=== PATIENT | female | born 1970 | race Caucasian/White ===

== ENCOUNTER 2024-04-20 09:32 | Inpatient (IN) ==
--- NOTE | 2024-03-30 12:19 | PAT Medication Instructions ---
Medication Instructions Date of Service March 30, 2024 Home Medications Medication Instructions Recorded baclofen 10 mg tablet 10 mg PO BID PRN pain/spasm #60 11/16/22 tabs levothyroxine 150 mcg tablet 150 mcg PO DAILY #90 tabs 11/18/23 valsartan 320 mg tablet 160 mg PO QPM hydroxychloroquine 200 mg tablet 400 mg PO QPM aspirin 81 mg capsule 81 mg PO QPM aspirin-caffeine 1,000 mg-65 mg oral powder packet (BC Arthritis) 1 ea PO DAILY PRN baclofen 10 mg tablet 10 mg PO BID PRN ascorbic acid (vitamin C) 1,000 mg capsule 1,000 mg PO QPM biotin 5,000 mcg PO QPM calcium carbonate (Calcium 600) 600 mg PO QPM cholecalciferol (vitamin D3) 125 mcg (5,000 unit) capsule 125 mcg PO DAILY echinacea 400 mg capsule 400 mg PO DAILY nabumetone 500 mg tablet 500 mg PO BID PRN zinc gluconate 100 mg tablet 100 mg PO QPM d-mannose 500 mg capsule 500 mg PO QPM magnesium aspartate-potassium aspartate 250 mg-250 mg capsule 1 cap PO QPM selenium 200 mcg tablet 200 mcg PO QPM venlafaxine 75 mg capsule,extended release 24 hr (Effexor XR) 75 mg PO QAM levothyroxine 150 mcg tablet 150 mcg PO DAILY cranberry 500 mg capsule 1,500 mg PO BID metformin 500 mg tablet 1,000 mg PO BID gabapentin 100 mg tablet 100 mg PO TID Continue as directed levothyroxine 150 mcg tablet 150 mcg PO DAILY ASK your prescriber and surgeon hydroxychloroquine 200 mg tablet 400 mg PO QPM aspirin 81 mg capsule 81 mg PO QPM aspirin-caffeine 1,000 mg-65 mg oral powder packet (BC Arthritis) 1 ea PO DAILY PRN nabumetone 500 mg tablet 500 mg PO BID PRN STOP taking 2 weeks before surgery (or as soon as possible if surgery is within 2 weeks) biotin 5,000 mcg PO QPM echinacea 400 mg capsule 400 mg PO DAILY selenium 200 mcg tablet 200 mcg PO QPM DO NOT take the morning of surgery cholecalciferol (vitamin D3) 125 mcg (5,000 unit) capsule 125 mcg PO DAILY zinc gluconate 100 mg tablet 100 mg PO QPM d-mannose 500 mg capsule 500 mg PO QPM cranberry 500 mg capsule 1,500 mg PO BID metformin 500 mg tablet 1,000 mg PO BID Take morning of surgery With a small sip of water, OTHERWISE NOTHING TO EAT OR DRINK AFTER MIDNIGHT: baclofen 10 mg tablet 10 mg PO BID PRN(if needed) venlafaxine 75 mg capsule,extended release 24 hr (Effexor XR) 75 mg PO QAM gabapentin 100 mg tablet 100 mg PO TID Take evening before surgery valsartan 320 mg tablet 160 mg PO QPM baclofen 10 mg tablet 10 mg PO BID PRN(if needed) ascorbic acid (vitamin C) 1,000 mg capsule 1,000 mg PO QPM calcium carbonate (Calcium 600) 600 mg PO QPM magnesium aspartate-potassium aspartate 250 mg-250 mg capsule 1 cap PO QPM cranberry 500 mg capsule 1,500 mg PO BID metformin 500 mg tablet 1,000 mg PO BID gabapentin 100 mg tablet 100 mg PO TID Other Notes If you have any questions please call us at [phone] or [phone] or [phone] or [phone]
--- NOTE | 2024-04-06 14:15 | Anesthesiology Consultation ---
Date of Service April 06, 2024 Assessment & Plan (1) Encounter for pre-operative examination: - Infectious disease screening: Per assessment on 04/06/24: No known recent infectious disease contacts or current infectious disease symptoms. - Neurology visit (11/2023): "At this point in time, I believe her dysequilibrium is multifactorial in light of her chronic vertigo and polyneuropathy; however, it seems most of her dizziness/dysequilibrium is due to her peripheral vertigo; she notes she would like to seek a second ENT opinion and is going to contact her PCP for this referral. In light of her cognitive complaints, a referral has been placed for a neurocognitive evaluation. She may continue with her current medication regimen in the meantime. She is to continue to follow with all current providers and their recommendations as advised. We will follow up with her once her neurocognitive testing has been completed, and sooner if needed." - LUE limb restriction - Possible difficult intubation: small oral opening, h/o mandibular surgery, macroglossia. Patient states prolonged "tongue pain" after remote surgery which she thinks might have been r/t the intubation- limited details, patient states she was not told by any provider that there was difficulties with intubation. - Hx PONV: Per patient, success with previous scope patch use. At anesthesiologist discretion DOS for use with upcoming surgery. - Patient acceptable risk for surgery pending surgeon-ordered PCP preop evaluation (Sandy Leigh PAC, appt 04/10). Chart Review Chart Review: Patient seen in Pre Admission Testing Teaching & Discussion Pre-Anesthesia Teaching/Discussion Notes: Instructed NPO after midnight before surgery,except medications with 15 cc of water. Medication instructions provided according to the PAT guidelines. History Surgery Operation Date: 04/20/24 07:45 Proposed Procedures p L4-S1 Decompression and Fusion with Spinal Cord Monitoring - Rashaun Willoughby DO Height/Weight Height: 5 ft 5 in Weight: 153.5 kg Allergies Allergy/AdvReac Type Severity Reaction Status Date / Time No Known Drug Allergies Allergy Verified 03/30/24 11:09 Medications Home Medications Medication Instructions Recorded Confirmed Last Taken valsartan 320 mg tablet 160 mg PO QPM 07/30/22 03/30/24 Unknown hydroxychloroquine 200 mg tablet 400 mg PO QPM 08/31/22 03/30/24 Unknown aspirin 81 mg capsule 81 mg PO QPM 11/16/22 03/30/24 Unknown aspirin-caffeine 1,000 mg-65 mg 1 ea PO DAILY PRN Pain 11/16/22 03/30/24 Unknown oral powder packet (BC Arthritis) baclofen 10 mg tablet 10 mg PO BID PRN pain/spasm #60 11/16/22 03/30/24 Unknown tabs ascorbic acid (vitamin C) 1,000 mg 1,000 mg PO QPM 02/22/23 03/30/24 Unknown capsule biotin 5,000 mcg PO QPM 02/22/23 03/30/24 Unknown calcium carbonate (Calcium 600) 600 mg PO QPM 02/22/23 03/30/24 Unknown cholecalciferol (vitamin D3) 125 125 mcg PO DAILY 02/22/23 03/30/24 Unknown mcg (5,000 unit) capsule echinacea 400 mg capsule 400 mg PO DAILY 02/22/23 03/30/24 Unknown nabumetone 500 mg tablet 500 mg PO BID PRN Pain 02/22/23 03/30/24 Unknown zinc gluconate 100 mg tablet 100 mg PO QPM 02/22/23 03/30/24 Unknown d-mannose 500 mg capsule 500 mg PO QPM 05/02/23 03/30/24 Unknown magnesium aspartate-potassium 1 cap PO QPM 05/02/23 03/30/24 Unknown aspartate 250 mg-250 mg capsule selenium 200 mcg tablet 200 mcg PO QPM 05/02/23 03/30/24 Unknown venlafaxine 75 mg capsule,extended 75 mg PO QAM 10/25/23 03/30/24 Unknown release 24 hr (Effexor XR) levothyroxine 150 mcg tablet 150 mcg PO DAILY #90 tabs 11/18/23 03/30/24 Unknown cranberry 500 mg capsule 1,500 mg PO BID 12/10/23 03/30/24 Unknown metformin 500 mg tablet 1,000 mg PO BID 12/10/23 03/30/24 Unknown gabapentin 100 mg tablet 100 mg PO TID 03/30/24 03/30/24 Unknown Past Medical History Medical History TYRONE positive ? Lupus Reason for hydroxychloroquine Follows with [facility] Anxiety Aortic stenosis Echo 11/2023: Mild aortic stenosis Cervicalgia Depression Dysequilibrium Follows with [facility] [place] to be multifactorial in light of chronic vertigo/polyneuropathy, possibly peripheral vertigo component Fatty liver H/O Sjogren's disease Hepatomegaly History of COVID-19 2019- hospitalized 2020- mild symptoms, resolved History of hepatomegaly Per records History of iron deficiency History of left breast cancer Hx radiation LUE limb restriction History of Lyme disease HTN (hypertension) Hx of carpal tunnel syndrome Hx of splenomegaly Hypothyroidism Limb alert care status LUE Lumbar disc herniation Lumbar radiculopathy Memory loss Morbid obesity Reason for Metformin Patient denies personal hx of diabetes or prediabetes Osteoarthritis Polyarthralgia Polyneuropathy Diffuse LE polyneuropathy per [facility] neuro records Sleep apnea CPAP (compliant) Exercise / Class Metabolic Activity III < 4 Walking/Shop/Light housework Past Family History Family History Other No family history of adverse response to anesthesia Past Surgical History Surgical History H/O tubal ligation History of breast surgery Breast "cancerous tissue" removed LUE restriction History of colonoscopy History of ear surgery History of esophagogastroduodenoscopy (EGD) History of surgical procedure on mouth Orthodontic surgery Jaw "broken and wired" for orthodontic surgery History of tooth extraction History of umbilical hernia repair History of wisdom tooth extraction Hx of LASIK Nausea and vomiting after administration of anesthetic agent "Severe" Previous scope patch use S/P breast biopsy, left S/P carpal tunnel release Left S/P cholecystectomy S/P hysterectomy SANDY BSO S/P medial meniscus repair of left knee S/P tonsillectomy Past Anesthesia History No Family Hx of Anesthesia Complications and Other (Patient states prolonged "tongue pain" after remote surgery which she thinks might have been r/t the intubation- limited details, patient states she was not told by any provider that there was difficulties with intubation.) History of PONV History of PONV and Hx of Motion Sickness Social History Smoking Status: Never smoker Do You Dip or Chew Tobacco: No Hx Alcohol Use: No Hx Substance Use: No substance use type: does not use Review of Systems Patient denies chest pain, shortness of breath, fever, chills, cough, wheezing, palpitations. Physical Exam Vital Signs BP 107/68 P 79 TEMP 98.3 SP02 95%RA RESP 16 Physical Full cervical extension range of motion. Full TMJ range of motion. TMD > 3.5 finger breaths Mallampati Score 3, macroglossia Dentition: missing molar Lungs: clear throughout to auscultation Cardiac: regular rate and rhythm, faint systolic murmur, distant heart sounds Spine: normal Carotid arteries: negative bruit Extremities: trace non-pitting LE edema Lab Results Anesthesia Preop Results Results Anesthesia Widget: WBC 8.72 K/ul (4.8-10.8) 04/06/24 Hgb 13.1 g/dl (12.0-16.0) 04/06/24 Hct 38.3 % (37.0-47.0) 04/06/24 Plt 240 K/uL (130-400) 04/06/24 Na 139 mmol/L (136-145) 04/06/24 K 4.3 mmol/L (3.5-5.1) 04/06/24 Cl 104 mmol/L (98-107) 04/06/24 CO2 26 mmol/L (21-32) 04/06/24 BUN 16 mg/dl (6-23) 04/06/24 Creat 0.69 mg/dl (0.6-1.2) 04/06/24 Glucose Level 89 mg/dl (70-99(Fasting)) 04/06/24 PT 11.2 Seconds (9.0-12.0) 04/06/24 PTT 26 Seconds (21-31) 04/06/24 INR 1.0 (0.9-1.1) 04/06/24 HA1c 5.1 % (4.5-5.6) 04/06/24 Urine Color Yellow 04/06/24 Urine Appearance Cloudy (Clear) A 04/06/24 Urine pH 5.5 (4.5-7.5) 04/06/24 Urine Specific [place] 1.030 (1.000-1.030) 04/06/24 Urine Protein 1+ (Negative) H 04/06/24 Urine Glucose (UA) Negative (Negative) 04/06/24 Urine Ketones Trace (Negative) H 04/06/24 Urine Blood 2+ (Negative) H 04/06/24 Urine Nitrite Negative (Negative) 04/06/24 Urine Bilirubin Negative (Negative) 04/06/24 Urine Urobilinogen Negative (Negative) 04/06/24 Urine Leukocyte Esterase 2+ (Negative) H 04/06/24 Urine WBC (Auto) >50 /hpf (0-5) H 04/06/24 Urine RBC (Auto) >20 /hpf (0-2) H 04/06/24 Urine Hyaline Casts (Auto) 0-2 /lpf (0-2) 04/06/24 Urine Epithelial Cells (Auto) 0-2 /hpf (0-2) 04/06/24 Urine Bacteria (Auto) None Seen (None Seen) 04/06/24 Blood Type O Positive 04/06/24 Antibody Screen NEGATIVE 04/06/24 Testing Echocardiogram Date: 11/28/23 EF 60 to 65%. No regional wall motion abnormality. Moderate concentric LVH. Mild aortic stenosis (KARL 1.5-1.6 cm, MG 9.5 mmHg). Other Testing Carotid doppler Date: 11/28/23 FINDINGS: RIGHT CAROTID: The peak systolic velocity measurements in the right ICA is 78 cm/sec. The end diastolic velocity measured 21 cm/sec. The ICA to CCA ratio measured 1.0 which correlates with a stenosis of 0-50%. Minimal atherosclerosis of the carotid bulb. LEFT CAROTID: The peak systolic velocity measurements in the left ICA is 89 cm/sec. The end diastolic velocity measured 35 cm/sec. The ICA to CCA ratio measured 1.1 which correlates with a stenosis of 0-50%. Minimal atherosclerosis of the carotid bulb. There is normal antegrade vertebral flow bilaterally. Impression: No hemodynamically significant stenosis. Normal antegrade vertebral flow bilaterally.
[2024-04-20] MEDS: LR 15ML/HR IV SCH (10:36)
[2024-04-20] MEDS: CeleBREX 200 MG CAP PO SCH (10:36)
[2024-04-20] MEDS: ACETAMINOPHEN 500 MG TAB PO SCH (10:36)
[2024-04-20] MEDS: GABAPENTIN 900 MG DOSE PO SCH (10:49)
[2024-04-20] MEDS: LR 60ML/HR IV SCH (10:50)
[2024-04-20] MEDS ORDERED: MIDAZOLAM HCL 1 MG/ML 2ML VIAL ONE (10:59)
[2024-04-20] MEDS ORDERED: LIDOCAINE 2% 2 ML VIAL/AMP(20MG/ML) INFIL ONE (10:59)
[2024-04-20] MEDS ORDERED: DEXAMETHASONE SOD INJ 4 MG/ML VIAL ONE (10:59)
[2024-04-20] MEDS ORDERED: PROPOFOL IV EMULSION 10 MG/ML 20 ML VIAL IV ONE (10:59)
[2024-04-20] MEDS ORDERED: ONDANSETRON INJ 2 MG/ML 2 ML VIAL ONE ×2 (10:59→12:49)
[2024-04-20] MEDS ORDERED: ROCURONIUM BROMIDE 10 MG/ML 5 ML VIAL IV ONE (10:59)
[2024-04-20] MEDS ORDERED: fentaNYL citrate PF 100 MCG/2 ML VIAL ONE ×2 (10:59→14:39)
[2024-04-20] MEDS ORDERED: SUGAMMADEX SODIUM 200 MG/2 ML VIAL IV ONE (11:00)
[2024-04-20] MEDS ORDERED: KETAMINE HCL 10MG/ML SYR ONE (11:00)
--- NOTE | 2024-04-20 11:25 | History & Physical Bridge Note ---
Date of Service April 20, 2024 History & Physical Bridge Note I have examined the patient, reviewed the History & Physical and in the interval since the performance of the History & Physical I have noted the following changes of clinical significance: no changes noted
--- NOTE | 2024-04-20 11:26 | History & Physical Report ---
Date of Service April 20, 2024 Assessment & Plan (1) Neurogenic claudication due to lumbar spinal stenosis: Plan: L4-S1 decompression and fusion History of Present Illness Chief Complaint: Back and bilateral leg pain Primary Care Provider: MECHELLE Lerner This is a 54-year-old female presents with chronic persistent back and leg pain after failing since course of nonoperative care is here for surgical intervention. Allergies Allergy/AdvReac Type Severity Reaction Status Date / Time No Known Drug Allergies Allergy Verified 04/20/24 10:11 Home Medications Medication Instructions Recorded Confirmed Type valsartan 320 mg tablet 160 mg PO QPM 07/30/22 04/20/24 History hydroxychloroquine 200 mg tablet 400 mg PO QPM 08/31/22 04/20/24 History aspirin 81 mg capsule 81 mg PO QPM 11/16/22 04/20/24 History aspirin-caffeine 1,000 mg-65 mg 1 ea PO DAILY PRN Pain 11/16/22 04/20/24 History oral powder packet (BC Arthritis) baclofen 10 mg tablet 10 mg PO BID PRN pain/spasm #60 11/16/22 04/20/24 Rx tabs ascorbic acid (vitamin C) 1,000 mg 1,000 mg PO QPM 02/22/23 04/20/24 History capsule biotin 5,000 mcg PO QPM 02/22/23 04/20/24 History calcium carbonate (Calcium 600) 600 mg PO QPM 02/22/23 04/20/24 History cholecalciferol (vitamin D3) 125 125 mcg PO DAILY 02/22/23 04/20/24 History mcg (5,000 unit) capsule echinacea 400 mg capsule 400 mg PO DAILY 02/22/23 04/20/24 History nabumetone 500 mg tablet 500 mg PO BID PRN Pain 02/22/23 04/20/24 History zinc gluconate 100 mg tablet 100 mg PO QPM 02/22/23 04/20/24 History d-mannose 500 mg capsule 500 mg PO QPM 05/02/23 04/20/24 History magnesium aspartate-potassium 1 cap PO QPM 05/02/23 04/20/24 History aspartate 250 mg-250 mg capsule selenium 200 mcg tablet 200 mcg PO QPM 05/02/23 04/20/24 History venlafaxine 75 mg capsule,extended 75 mg PO QAM 10/25/23 04/20/24 History release 24 hr (Effexor XR) levothyroxine 150 mcg tablet 150 mcg PO DAILY #90 tabs 11/18/23 04/20/24 Rx cranberry 500 mg capsule 1,500 mg PO BID 12/10/23 04/20/24 History metformin 500 mg tablet 1,000 mg PO BID 12/10/23 04/20/24 History gabapentin 100 mg tablet 100 mg PO TID 03/30/24 04/20/24 History nitrofurantoin 100 mg PO Q12H 5 days #10 caps 04/09/24 04/20/24 Rx monohydrate/macrocrystals 100 mg capsule (Macrobid) Past Med/Surg History Problem List (Updated 04/20/24 @ 11:26 by Rashaun Willoughby DO) Neurogenic claudication due to lumbar spinal stenosis Dysuria Hematuria Encounter for pre-operative examination Vitamin D deficiency Medical History Aortic stenosis Dysequilibrium Hx of carpal tunnel syndrome History of Lyme disease Memory loss Morbid obesity Hepatomegaly History of iron deficiency History of hepatomegaly Hx of splenomegaly Lumbar radiculopathy Sleep apnea Osteoarthritis Lumbar disc herniation Cervicalgia Polyarthralgia Polyneuropathy Depression Anxiety Hypothyroidism HTN (hypertension) H/O Sjogren's disease TYRONE positive Fatty liver Limb alert care status History of left breast cancer History of COVID-19 Surgical History Nausea and vomiting after administration of anesthetic agent History of colonoscopy History of esophagogastroduodenoscopy (EGD) History of breast surgery History of tooth extraction History of wisdom tooth extraction History of ear surgery Hx of LASIK S/P hysterectomy S/P breast biopsy, left History of umbilical hernia repair S/P medial meniscus repair of left knee S/P carpal tunnel release S/P cholecystectomy S/P tonsillectomy H/O tubal ligation History of surgical procedure on mouth Family History Other No family history of adverse response to anesthesia Social History Smoking Status: Never smoker Second Hand Exposure: No; Do You Dip or Chew Tobacco: No; Tobacco Cessation Education Requested by Patient: No Hx Alcohol Use: No Hx Substance Use: No Preferred Language: Danish Communication Ability: Effective Computer Game Designer Required: No Beliefs That Will Affect Care: None Current Living Situation: Spouse Other Information That Helps Us Care for You: No Feels Safe at Home: Yes Safety Concerns: Feels Safe At This Time Assistive Devices: Contacts, CPAP and Glasses Physical Exam Physical Exam: Patient is alert and oriented Heart regular in rhythm lungs clear Results & Data Results & Data Vital Signs (Past 12 Hours) Vital Signs Temp Pulse Resp BP Pulse Ox O2 Del Method 04/20/24 10:05 37.1 C 80 22 155/89 H 96 Room Air
[2024-04-20] MEDS: ceFAZolin 3000MG 3,000 MG/72.5 ML BAG IV SCH (11:52)
[2024-04-20] MEDS ORDERED: fentaNYL citrate PF 100 MCG/2 ML VIAL IV PRN (11:56)
[2024-04-20] MEDS ORDERED: PROMETHAZINE HCL 6.25 MG in SODIUM CHLORIDE 0.9% 50 ML IV PRN (11:56)
[2024-04-20] MEDS ORDERED: HYDROmorphone INJ 2 MG/ML SYR/VIAL IV PRN (11:56)
[2024-04-20] MEDS ORDERED: ATROPINE SULFATE 0.1 MG/ML 10ML SYR IV PRN (11:56)
[2024-04-20] MEDS ORDERED: ONDANSETRON INJ 2 MG/ML 2 ML VIAL IV PRN ×2 (11:56→17:15)
[2024-04-20] MEDS ORDERED: ePHEDrine sulfate 50 MG/ML AMP IV PRN (11:56)
[2024-04-20] MEDS: BUPIVACAINE/EPINEPHRINE 0.25% 1:200,000 30 ML VIAL ONE (12:43)
[2024-04-20] MEDS: ceFAZolin 330 MG/ML 1 GM VIAL ONE (12:43)
[2024-04-20] MEDS: FLOSEAL HEMOSTATIC MATRIX 10ML TOP ONE (14:08)
--- NOTE | 2024-04-20 14:44 | Operative Report ---
Post Operative Report Pre & Post Diagnosis Operation Date: 04/20/24 11:25 Pre-Op Diagnosis: #1 lumbar spinal stenosis with neurogenic claudication #2 grade 1 spondylolisthesis L4-L5 #3 morbid obesity Post-Op Diagnosis: Same I identified the patient and participated in the time-out.: Yes Procedure Operation Date: 04/20/24 11:25 Actual Procedures #1 lumbar decompression bilateral medial facetectomies and foraminotomies L3-L4, L4-5 and L5-S1. #2 posterior spinal fusion L4-S1. #3 placed posterior instrumentation L4-S1. #4 interbody fusion L4-L5 L5-S1. #5 placement of Spira 14 x 26 mm x 2 at L4-5 and 13 x 26 mm x 2 at L5-S1. #6 placement locally harvested morselized autograft in the posterior gutters. #7 placement infuse collagen sponge, with Koros bone graft in the posterior gutters and Morpheus bone graft interbody space. Surgeon Rashaun Willoughby, DO Mis Specialist Karli Causey Estimated Blood Loss 750 Findings See Below The patient is 5 foot 5 weighing over 153 kg with a BMI in excess of 56. This combined with an EBL of greater than 750 cc created significant technical difficulty. She was technically difficult with positioning exposure and the procedure itself. These factors added at least 50% increased operative time and I am billing a modifier 22 Specimens None Indications This is a 54-year-old female who presents problems diagnosis after failed extensive course of nonoperative care is here for surgical invention. Description of Procedure Patient was met with identified informed consent obtained. Patient was then taken to the operative suite underwent ablation placed in a prone position on the Eladio table on top of the Yvan frame. All bony prominences well-padded eyes inspected to ensure no external precipice upon the. This point lumbar spine was prepped and draped normal sterile fashion. Sharp dissection with the assistance of Bovie cautery form down to and exposing the lamina transverse processes of L4-5 and sacral ala bilaterally. Our deepest retractors were utilized to assist in visualization. Informed complete laminectomy of L5 including bilateral medial facetectomies and foraminotomies addressing severe spinal stenosis. Informed complete laminectomy of L4 including bilateral medial facetectomies and foraminotomies addressing severe stenosis. Lastly performed partial laminectomy of L3 including bilateral medial facetectomies to address severe neural compression. Pedicle screws then placed in L4-L5 and S1 levels bilaterally with assistance of fluoroscopy and proper size nakia placed. By way of transforaminal approach beginning on the left a discectomy of L5-S1 was performed endplates guided to subcortical bleeding bone and a 13 x 26 mm Spira cage filled with Morpheus bone graft tapped in position. Then proceeded the right transforaminal region completed the discectomy of L5-S1 placed a second 13 x 26 mm spiral cage with Morpheus bone graft into position. Then proceeded to L4-L5 by way of a transforaminal approach on the right discectomy was performed endplates guided to subcortical bleeding bone and a 14 x 26 mm spiral cage filled with Morpheus bone graft tapped in position. Then proceeded to the left side of L4-L5 transforaminal region completed the discectomy. Endplates guided to subcortical bleeding bone and a second 14 x 26 mm spiral cage filled with Morpheus bone graft tapped in position. The rods were then compressed locked in final position bilaterally. The transverse processes of L4-5 and sacral ala burred to subcortical bleeding bone. Infuse collagen sponge, with Koros and locally harvested morselized autograft was placed in the posterior gutters. 15 round NURIA drain inserted. The incision was then closed with 1 Vicryl in the fascia 2-0 Vicryl subcutaneously and 4 Monocryl for final skin closure. Steri- Strips sterile dressing placed. Patient waken taken to PACU stable condition. Please note spinal cord monitoring visualized at the procedure no changes noted. Lastly Karli Causey was present at the entire surgery while the patient positioning complex portion of the surgery and final skin closure. I attest to the content of the Intraoperative Record and any orders documented therein. Any exceptions are noted below.
--- NOTE | 2024-04-20 16:49 | Anesthesiology Progress Note ---
Date of Service April 20, 2024 Anesthesia Post Procedure Vital Signs Vital Signs: Temp Pulse Pulse Resp BP Pulse Ox O2 Del Method 04/20/24 16:45 70 16 128/78 93 Nasal Cannula 04/20/24 16:35 70 18 151/87 H 93 Nasal Cannula 04/20/24 16:25 64 16 154/78 H 96 Nasal Cannula 04/20/24 16:15 97.5 F L 62 16 136/78 94 Nasal Cannula 04/20/24 16:05 62 18 143/85 H 94 Oxymask 04/20/24 15:55 60 16 137/85 94 Oxymask 04/20/24 15:45 60 18 140/77 94 Oxymask 04/20/24 15:35 68 18 129/69 94 Oxymask 04/20/24 15:25 67 18 142/80 H 92 Oxymask 04/20/24 15:15 97.3 F L 64 22 149/80 H 93 Oxymask 04/20/24 10:05 98.8 F 80 22 155/89 H 96 Room Air O2 Flow Rate 04/20/24 16:45 3 04/20/24 16:35 3 04/20/24 16:25 3 04/20/24 16:15 3 04/20/24 16:05 4 04/20/24 15:55 6 04/20/24 15:45 8 04/20/24 15:35 9 04/20/24 15:25 12 04/20/24 15:15 12 04/20/24 10:05 Pain Intensity Back: Pain Intensity: 4 Transfer of Care Handoff Completed per policy Notes Mental Status: alert / awake / arousable and participated in evaluation Patient Amnestic to Procedure: Yes Nausea / Vomiting: adequately controlled Pain: adequately controlled Airway Patency, RR, SpO2: stable & adequate BP & HR: stable & adequate Hydration State: stable & adequate Anesthetic Complications: no major complications apparent and Pt Satisfied with anesthetic care
[2024-04-20] MEDS ORDERED: LORazepam 0.5 MG in SYRINGE 0.25 ML IV PRN (17:15)
[2024-04-20] MEDS ORDERED: FAMOTIDINE 20 MG TAB PO PRN (17:15)
[2024-04-20] MEDS ORDERED: SOD PHOSPHATE/SOD BIPHOSPHATE ENEMA 132 ML BTL PR PRN (17:15)
[2024-04-20] MEDS ORDERED: DO NOT ADMINISTER PNEUMOCOCCAL VACCINE PRN (17:15)
[2024-04-20] MEDS ORDERED: HYDROmorphone INJ 1 MG/ML SYRINGE IV PRN (17:15)
[2024-04-20] MEDS ORDERED: diphenhydrAMINE Capsule 25 MG CAP PO PRN (17:15)
[2024-04-20] MEDS ORDERED: BACLOFEN 10 MG TAB PO PRN (17:15)
[2024-04-20] MEDS ORDERED: NALOXONE HCL 0.4 MG/1 ML VIAL/CARP IV PRN (17:15)
[2024-04-20] MEDS ORDERED: ALUMINUM/MAGNESIUM SUSP 30 ML UDC PO PRN (17:15)
[2024-04-20] MEDS ORDERED: DO NOT ADMINISTER FLU VACCINE PRN (17:15)
[2024-04-20] MEDS ORDERED: PROMETHAZINE HCL 12.5 MG in SODIUM CHLORIDE 0.9% 50 ML IV PRN (17:15)
[2024-04-20] MEDS ORDERED: HYDROmorphone INJ 0.5 MG/0.5 ML SYR IV PRN (17:15)
[2024-04-20] MEDS ORDERED: ONDANSETRON 4 MG OD TAB PO PRN (17:15)
[2024-04-20] MEDS ORDERED: LORazepam 0.5 MG TAB PO PRN (17:15)
[2024-04-20] MEDS ORDERED: bisacodyL 10 MG SUPP PR PRN (17:15)
[2024-04-20] MEDS ORDERED: METOCLOPRAMIDE HCL INJ 5 MG/ML 2 ML VIAL IV PRN (17:15)
[2024-04-20] MEDS ORDERED: PHARMACY GLYCEMIC MGMT CONSULT PRN (17:15)
[2024-04-20] MEDS ORDERED: hydrOXYzine HCl 25 MG TAB PO PRN (17:15)
[2024-04-20] MEDS: SODIUM CHLORIDE 0.9% 1,000 ML IV SCH (17:49)
[2024-04-20] MEDS: SCOPOLAMINE 1 MG/72 HR TDSY PATCH TD ONE (17:51)
[2024-04-20] MEDS: INSULIN ASPART PER UNIT CHARGE SC SCH (18:49)
[2024-04-20] MEDS: VALSARTAN 80 MG TAB PO SCH (20:47)
[2024-04-20] MEDS: ASPIRIN 81 MG ECTAB PO SCH (20:47)
[2024-04-20] MEDS: DOCUSATE SODIUM/SENNA 50/8.6MG TAB PO SCH (20:47)
[2024-04-20] MEDS: ceFAZolin 2000MG 2,000 MG/15 ML SYR IV SCH (20:47)
[2024-04-20] MEDS: HYDROXYCHLOROQUINE SULFATE 200 MG TAB PO SCH (20:47)
[2024-04-20] MEDS: GABAPENTIN 100 MG CAP PO SCH (20:47)
[2024-04-20] MEDS ORDERED: NON-FORMULARY MEDICATION (Magnesium, Potassium Aspartate 250-250 mg Capsule) PO SCH (21:00)
[2024-04-20] MEDS: ACETAMINOPHEN 500 MG TAB PO PRN (22:47)
[2024-04-21] MEDS: oxyCODONE HCL IR 5 MG TAB (IMMEDIATE RELEASE) PO PRN (04:31)
[2024-04-21] MEDS: LEVOTHYROXINE SODIUM 150 MCG TABLET PO SCH (06:03)
[2024-04-21] MEDS: POLYETHYLENE (MIRALAX) 17 GM PACK PO SCH (06:03)
[2024-04-21] MEDS: ACETAMINOPHEN 1,000 MG/100 ML VIAL IV PRN (07:42)
[2024-04-21 08:01] LABS: Basophils # (auto) 0.02 K/uL (0.00-0.20); Basophils % (auto) 0.2 %; Eosinophils # (auto) 0.01 K/uL (0.00-0.50); Eosinophils % (auto) 0.1 %; Hemoglobin 9.7 g/dl (12.0-16.0); Immature Granulocytes # (auto) 0.05 K/uL (0.01-0.20); Immature Granulocytes % (auto) 0.4 %; Lymphocytes % (auto) 17.7 %; Mean Corpuscular Hgb Conc 33.4 g/dL (32.0-36.0); Mean Corpuscular Volume 89.8 fL (80.0-100.0); Mean Platelet Volume 10.8 fL (9.4-12.4); Monocytes # (auto) 0.76 K/uL (0.11-0.59); Monocytes % (auto) 6.7 %; Neutrophils # (auto) 8.47 K/uL (1.40-6.50); Neutrophils % (auto) 74.9 %; Platelet Count 226 K/uL (130-400); RDW Standard Deviation 42.8 fL (36.4-46.3); Red Blood Count 3.23 M/uL (4.20-5.40); White Blood Count 11.31 K/ul (4.8-10.8)
[2024-04-21] MEDS: dexAMETHasone 6 MG in SYRINGE 0 ML IV SCH (08:44)
[2024-04-21] MEDS: VENLAFAXINE HCL XR 75 MG CAPXR PO SCH (08:44)
[2024-04-21] MEDS: CHOLECALCIFEROL 125 MCG (5,000 UNITS) TAB PO SCH (08:45)
[2024-04-21 08:49] LABS: Potassium 3.8 mmol/L (3.5-5.1)
[2024-04-21 08:54] LABS: BUN Creatinine Ratio 19.1 (10-20); Est GFR (African American) 131.6 ml/min; Est GFR (Non-African American) 113.6 ml/min
--- NOTE | 2024-04-21 09:22 | Pharmacy Report ---
Pharmacy Glycemic Sign Off Nt - Date of Service April 21, 2024 - Assessment & Plan ASSESSMENT: * Pharmacy was consulted by Dr Willoughby on 04/20/24 for glycemic control and to write orders per [facility] inpatient glycemic control protocol. * Major changes made by pharmacy to antidiabetic regimen include: * Addition of insulin, then metformin * Patient has been refusing insulin since time of consult, patient is only pre- diabetic * BSGs ranging 111-192 mg/dl PLAN FOR INPATIENT GLYCEMIC CONTROL: No changes needed to current regimen. * Metformin 1000 mg PO BIDM * Hold SC basal/bolus in light of patient refusal * Pharmacy is signing off of glycemic consult and will no longer be making adjustments to inpatient regimen. Please feel free to re-consult if needed. Thank you.
--- NOTE | 2024-04-21 09:42 | Orthopedic Progress Note ---
Date of Service April 21, 2024 Assessment & Plan (1) Neurogenic claudication due to lumbar spinal stenosis: Plan: At this point we will initiate physical therapy monitor NURIA output hopefully discharge home in the next few days. Admission and Anticipated Discharge Date Admission Date: April 20, 2024 Subjective Back pain controlled leg pain improved Physical Exam Physical Exam: Patient is up and ambulating. Discussed when to testing. Results & Data Vital Signs (Past 12 Hours) Vital Signs Temp Pulse Resp BP Pulse Ox O2 Del Method O2 Flow Rate 04/21/24 07:39 36.8 C 80 16 108/53 L 96 Room Air 04/21/24 04:00 36.8 C 77 20 106/67 93 Room Air 04/21/24 00:00 36.8 C 82 18 122/77 96 Nasal Cannula 2 04/20/24 22:29 Nasal Cannula 3 Queries Orthopedic Spine Acute Posthemorrhagic Anemia: Yes Obesity: Yes
--- NOTE | 2024-04-21 10:04 | Consultation ---
Date of Consultation April 21, 2024 Assessment & Plan (1) Neurogenic claudication due to lumbar spinal stenosis: POD #1 s/p lumbar decompression/fusion L4-S1 by Dr Willoughby Defer pain management and disposition to primary ortho-spine team (2) Acute blood loss anemia: 3.5 gram drop repeat H/H am does have history of Fe def thus check Fe studies am consider Fe supplementation (3) Morbid obesity: BMI 56 (4) History of iron deficiency: noted check Fe studies am in light of #2 (5) Hypothyroidism: TSH 08/2023 wnl Cont synthroid (6) HTN (hypertension): Due to acute blood loss anemia her BPs are low-normal HOLD her valsartan Trend her BPs BMP am (7) H/O Sjogren's disease: noted follows with [facility] cont plaquenil (8) TYRONE positive: follows with [facility] dx - SLE? MCTD? Other? cont plaquenil (9) History of left breast cancer: noted (10) Sleep apnea: cont CPAP Plan Thank you for this consult. We will follow with you. History of Present Illness Requesting Physician: Nestor Willoughby DO Reason for Consultation: post-op medical management Attending Physician: Rashaun Willoughby DO History of Present Illness 54yo female with history of FRANCO, breast cancer, chronic lumbar DJD with radiculopathy, MCTD/other rheumatic condition on plaquenil (follows with [facility]), hypothyroidism, and HTN who presented on 04/20/24 for elective back surgery with Dr Willoughby. She had been having chronic low back pain with radiculopathy of her legs due to lumbar spinal stenosis and thus underwent decompression/fusion of L4-S1. EBL was 750cc. I saw her today, POD #1, and she was resting comfortably while sitting in the chair. Her radicular pain of her legs is MUCH better. She has some residual numbness in her feet only. c/o low back pain from her incision. Eating/drinking well. Denies nausea although had some yesterday. Denies chest pain or dyspnea. Denies abd pain. She is pleased with overall how she is feeling. Allergies Allergy/AdvReac Type Severity Reaction Status Date / Time No Known Drug Allergies Allergy Verified 04/20/24 10:11 Home Medications Medication Instructions Recorded Confirmed Type valsartan 320 mg tablet 160 mg PO QPM 07/30/22 04/20/24 History hydroxychloroquine 200 mg tablet 400 mg PO QPM 08/31/22 04/20/24 History aspirin 81 mg capsule 81 mg PO QPM 11/16/22 04/20/24 History aspirin-caffeine 1,000 mg-65 mg 1 ea PO DAILY PRN Pain 11/16/22 04/20/24 History oral powder packet (BC Arthritis) baclofen 10 mg tablet 10 mg PO BID PRN pain/spasm #60 11/16/22 04/20/24 Rx tabs ascorbic acid (vitamin C) 1,000 mg 1,000 mg PO QPM 02/22/23 04/20/24 History capsule biotin 5,000 mcg PO QPM 02/22/23 04/20/24 History calcium carbonate (Calcium 600) 600 mg PO QPM 02/22/23 04/20/24 History cholecalciferol (vitamin D3) 125 125 mcg PO DAILY 02/22/23 04/20/24 History mcg (5,000 unit) capsule echinacea 400 mg capsule 400 mg PO DAILY 02/22/23 04/20/24 History nabumetone 500 mg tablet 500 mg PO BID PRN Pain 02/22/23 04/20/24 History zinc gluconate 100 mg tablet 100 mg PO QPM 02/22/23 04/20/24 History d-mannose 500 mg capsule 500 mg PO QPM 05/02/23 04/20/24 History magnesium aspartate-potassium 1 cap PO QPM 05/02/23 04/20/24 History aspartate 250 mg-250 mg capsule selenium 200 mcg tablet 200 mcg PO QPM 05/02/23 04/20/24 History venlafaxine 75 mg capsule,extended 75 mg PO QAM 10/25/23 04/20/24 History release 24 hr (Effexor XR) levothyroxine 150 mcg tablet 150 mcg PO DAILY #90 tabs 11/18/23 04/20/24 Rx cranberry 500 mg capsule 1,500 mg PO BID 12/10/23 04/20/24 History metformin 500 mg tablet 1,000 mg PO BID 12/10/23 04/20/24 History gabapentin 100 mg tablet 100 mg PO TID 03/30/24 04/20/24 History nitrofurantoin 100 mg PO Q12H 5 days #10 caps 04/09/24 04/20/24 Rx monohydrate/macrocrystals 100 mg capsule (Macrobid) oxycodone 5 mg tablet 5 mg PO Q6H PRN pain #30 tabs 04/21/24 Rx tramadol 50 mg tablet 50 mg PO Q6H PRN pain, moderate 04/21/24 Rx #30 tabs Patient History Medical History Aortic stenosis Echo 11/2023: Mild aortic stenosis Dysequilibrium [facility] [place] to be multifactorial in light of chronic vertigo/polyneuropathy, possibly peripheral vertigo component Hx of carpal tunnel syndrome History of Lyme disease Memory loss Morbid obesity Reason for Metformin Patient denies personal hx of diabetes or prediabetes Hepatomegaly History of iron deficiency History of hepatomegaly Per records Hx of splenomegaly Lumbar radiculopathy Sleep apnea CPAP (compliant) Osteoarthritis Lumbar disc herniation Cervicalgia Polyarthralgia Polyneuropathy Diffuse LE polyneuropathy per [facility] [place] records Depression Anxiety Hypothyroidism HTN (hypertension) H/O Sjogren's disease TYRONE positive ? Lupus Reason for hydroxychloroquine Follows with [facility] Fatty liver Limb alert care status LUE History of left breast cancer Hx radiation LUE limb restriction History of COVID-19 2019- hospitalized 2020- mild symptoms, resolved Surgical History Nausea and vomiting after administration of anesthetic agent "Severe" Previous scope patch use History of colonoscopy History of esophagogastroduodenoscopy (EGD) History of breast surgery Breast "cancerous tissue" removed LUE restriction History of tooth extraction History of wisdom tooth extraction History of ear surgery Hx of LASIK S/P hysterectomy SANDY BSO S/P breast biopsy, left History of umbilical hernia repair S/P medial meniscus repair of left knee S/P carpal tunnel release Left S/P cholecystectomy S/P tonsillectomy H/O tubal ligation History of surgical procedure on mouth Orthodontic surgery Jaw "broken and wired" for orthodontic surgery Family History Other No family history of adverse response to anesthesia Denies family history of Deep vein thrombosis Pulmonary embolism Social History (Updated 04/22/24 @ 06:18 by Ye Deshpande MD) Smoking Status: Never smoker Second Hand Exposure: No; Do You Dip or Chew Tobacco: No; Hx Alcohol Use: No Hx Substance Use: No Preferred Language: Turkmen Communication Ability: Effective Cleaning Laborer Required: No Beliefs That Will Affect Care: None marital status: Current Living Situation: Spouse 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, etc) Feels Safe at Home: Yes Assistive Devices: Walker Review of Systems Review of Systems: gen - no fevers or chills; eating well eyes - no vision changes HENT - no swallowing difficulties CV - no chest pain pulm - no dyspnea at rest; no cough GI - no abd pain or N/V - no recent LUTS musculo - low back pain neuro - no dizziness; radicular pain of legs is much better; she reports gabapentin had been every effective for her prior to this surgery endo - no diabetes skin - no rash Physical Exam Physical Exam: gen - morbidly obese, NAD, sitting in chair comfortably eyes - PERRL HENT - MMM, no lesions neck - no JVD, no lymph nodes CV - RRR, s1 s2, no murmur lungs - CTA b/l abd - soft NT ND BS+ ext - no edema of ankles/feet; pulses 2+ b/l neuro - strength b/l legs 5/5 all muscle groups tested; handgrip 5/5 b/l skin - no rash; mild pallor Results & Data Vital Signs (Past 12 Hours) Vital Signs Temp Pulse Resp BP Pulse Ox O2 Del Method O2 Flow Rate 04/21/24 07:39 36.8 C 80 16 108/53 L 96 Room Air 04/21/24 04:00 36.8 C 77 20 106/67 93 Room Air 04/21/24 00:00 36.8 C 82 18 122/77 96 Nasal Cannula 2 04/20/24 22:29 Nasal Cannula 3 Laboratory Results Laboratory Results - last 48 hr 04/20/24 04/20/24 04/21/24 09:59 17:17 07:30 WBC 11.31 H RBC 3.23 L Hgb 9.7 L Hct 29.0 L MCV 89.8 MCH 30.0 MCHC 33.4 RDW Std Deviation 42.8 RDW Coeff of Jacqueline 13.0 Plt Count 226 MPV 10.8 Immature Gran % (Auto) 0.4 Neut % (Auto) 74.9 Lymph % (Auto) 17.7 [place] % (Auto) 6.7 Eos % (Auto) 0.1 Baso % (Auto) 0.2 Neut # (Auto) 8.47 H Lymph # (Auto) 2.00 [place] # (Auto) 0.76 H Eos # (Auto) 0.01 Baso # (Auto) 0.02 Immature Gran # (Auto) 0.05 Sodium 139 Potassium 3.8 Chloride 104 Carbon Dioxide 30 Anion Gap 5 BUN 9 Creatinine 0.47 L Est Cr Clr Drug Dosing 211.0 Est GFR ( Amer) 131.6 Est GFR (Non-Af Amer) 113.6 BUN/Creatinine Ratio 19.1 Glucose 107 H POC Glucose 192 H Calcium 8.0 L Blood Type O Positive Antibody Screen NEGATIVE Crossmatch See Detail 04/21/24 04/21/24 08:05 12:00 WBC RBC Hgb Hct MCV MCH MCHC RDW Std Deviation RDW Coeff of Jacqueline Plt Count MPV Immature Gran % (Auto) Neut % (Auto) Lymph % (Auto) [place] % (Auto) Eos % (Auto) Baso % (Auto) Neut # (Auto) Lymph # (Auto) [place] # (Auto) Eos # (Auto) Baso # (Auto) Immature Gran # (Auto) Sodium Potassium Chloride Carbon Dioxide Anion Gap BUN Creatinine Est Cr Clr Drug Dosing Est GFR ( Amer) Est GFR (Non-Af Amer) BUN/Creatinine Ratio Glucose POC Glucose 111 H 131 H Calcium Blood Type Antibody Screen Crossmatch Hba1c - 04/06/24 - 5.1% TSH 2022 wnl Hb 13.1 on 04/06/24 pre-op PG Care Time/CCT Total # of Minutes Spent Total Time Spent with Patient: Total time spent is greater than 50% in coordination of care (as documented) at patient's floor/unit and/or counseling patient: Coding Level of Care Code 32388 IN/OBS CONSULT LVL 3,45M Diagnoses Neurogenic claudication due to lumbar spinal stenosis M48.062 Acute blood loss anemia D62 Morbid obesity E66.01 History of iron deficiency Z86.39 Hypothyroidism E03.9 HTN (hypertension) I10 H/O Sjogren's disease M35.00 TYRONE positive R76.8 History of left breast cancer Z85.3 Sleep apnea G47.30
[2024-04-21] MEDS: metFORMIN HCL 500 MG TAB PO SCH (10:21)
[2024-04-21] MEDS: traMADol HCL 50 MG TABLET PO PRN (10:21)
--- NOTE | 2024-04-21 10:48 | Fluoroscopy Report ---
FL lumbar spine 2-3V CLINICAL HISTORY: L4-S1 DECOMPRESSION AND FUSION COMPARISON STUDY: None. FLUOROSCOPY TIME: 31 seconds FLUOROSCOPY IMAGES: 2 Ka,r: 44.9 mGy FINDINGS: Posterior decompression and fusion from L4 through S1 with pedicle screws and rods. The patria dwconchita appears intact. IMPRESSION: Fluoroscopic assistance as above. ACT 112: Negative or not required by law. Electronically signed by: Mike Gonzalez M.D. 04/21/2024 10:47 AM
[2024-04-22 07:11] LABS: Hematocrit (blood only) 30.7 % (37.0-47.0); Hemoglobin 10.3 g/dl (12.0-16.0); Mean Corpuscular Hemoglobin 30.4 pg (25.0-34.0); Mean Corpuscular Hgb Conc 33.6 g/dL (32.0-36.0); Mean Corpuscular Volume 90.6 fL (80.0-100.0); Mean Platelet Volume 10.8 fL (9.4-12.4); Platelet Count 254 K/uL (130-400); RDW Standard Deviation 43.2 fL (36.4-46.3); Red Blood Count 3.39 M/uL (4.20-5.40); White Blood Count 13.49 K/ul (4.8-10.8)
[2024-04-22 07:34] LABS: BUN Creatinine Ratio 23.5 (10-20); Calcium 8.6 mg/dl (8.6-10.3); Creatinine Clr Calc Pharmacy 194.5 ml/min; Est GFR (African American) 128.1 ml/min; Est GFR (Non-African American) 110.6 ml/min; Potassium 3.9 mmol/L (3.5-5.1)
[2024-04-22 07:53] LABS: Ferritin 64.3 ng/ml (8-388)
[2024-04-22] MEDS: MAGNESIUM HYDROXIDE SUSP 30 ML UDC PO PRN (08:26)
--- NOTE | 2024-04-22 10:05 | Orthopedic Progress Note ---
Date of Service April 22, 2024 Assessment & Plan (1) Neurogenic claudication due to lumbar spinal stenosis: Plan: At this time we will continue physical therapy monitor her NURIA output hopefully discharge home tomorrow. Admission and Anticipated Discharge Date Admission Date: April 20, 2024 Subjective Back pain controlled leg pain markedly improved Physical Exam Physical Exam: Patient is comfortable. Good strength testing. Results & Data Vital Signs (Past 12 Hours) Vital Signs Temp Pulse Resp BP Pulse Ox O2 Del Method 04/22/24 07:16 36.5 C 79 16 96/60 L 94 CPAP Queries Orthopedic Spine Acute Posthemorrhagic Anemia: Yes Obesity: Yes
--- NOTE | 2024-04-22 19:19 | Hospitalist Progress Note ---
Date of Service April 22, 2024 Assessment & Plan (1) Neurogenic claudication due to lumbar spinal stenosis: Plan: POD #2 s/p lumbar decompression/fusion L4-S1 by Dr Willoughby Defer pain management and disposition to primary ortho-spine team (2) Acute blood loss anemia: Plan: ~3 gram drop H/H stable today Fe studies noted would benefit from Fe supplementation will start ferrous sulfate 325mg daily starting tomorrow (3) Morbid obesity: Plan: BMI 56 (4) History of iron deficiency: Plan: noted see above (5) Hypothyroidism: Plan: TSH 08/2023 wnl Cont synthroid (6) HTN (hypertension): Plan: Due to acute blood loss anemia her BPs remain low-normal cont to HOLD her valsartan Trend her BPs BMP stable today (7) H/O Sjogren's disease: Plan: noted follows with [facility] cont plaquenil (8) TYRONE positive: Plan: follows with [facility] dx - SLE? MCTD? Other? cont plaquenil (9) History of left breast cancer: Plan: noted (10) Sleep apnea: Plan: cont CPAP Plan doing well medically Admission and Anticipated Discharge Date Admission Date: April 20, 2024 Subjective only complaint is that of foot numbness but no radicular pain of legs some mild incisional back pain had stool this am eating/drinking no other new complaints Review of Systems Review of Systems: cv - no chest pain pulm - no dyspnea GI - no abd pain; had transient nausea yesterday now resolved; no emesis Physical Exam Physical Exam: gen - morbidly obese, NAD mouth - MMM neck - no JVD heart - RRR, s1 s2 lungs - CTA b/l abd - soft NT ND BS+ ext - no edema, pulses 2+ b/l neuro - strength 5/5 all muscle groups of legs except 4/5 strength L hip flexion Results & Data Results & Data Vital Signs (Past 12 Hours) Vital Signs Temp Pulse Resp BP Pulse Ox O2 Del Method 04/22/24 14:09 36.9 C 86 16 106/65 95 Room Air Laboratory Results Laboratory Results - last 24 hr 04/20/24 04/22/24 09:59 06:52 Sodium 138 Potassium 3.9 Chloride 102 Carbon Dioxide 25 Anion Gap 11 BUN 12 Creatinine 0.51 L Est Cr Clr Drug Dosing 194.5 Est GFR ( Amer) 128.1 Est GFR (Non-Af Amer) 110.6 BUN/Creatinine Ratio 23.5 H Glucose 120 H Calcium 8.6 Iron 69 TIBC 305 Unsaturated IBC 236 Transferrin % Sat 23 Ferritin 64.3 Crossmatch See Detail PG Care Time/CCT Total # of Minutes Spent Total Time Spent with Patient: Total time spent is greater than 50% in coordination of care (as documented) at patient's floor/unit and/or counseling patient: Coding Level of Care Code 64446 SUB INP/OBS CARE 11/14MIN Diagnoses Neurogenic claudication due to lumbar spinal stenosis M48.062 Acute blood loss anemia D62 Morbid obesity E66.01 History of iron deficiency Z86.39 Hypothyroidism E03.9 HTN (hypertension) I10 H/O Sjogren's disease M35.00 TYRONE positive R76.8 History of left breast cancer Z85.3 Sleep apnea G47.30
[2024-04-23] MEDS: FERROUS SULFATE 325 MG TAB PO SCH (08:48)
--- NOTE | 2024-04-23 08:49 | Discharge Summary ---
Date of Service April 23, 2024 Admission HPI Per Admitting Provider This is a 54-year-old female presents with chronic persistent back and leg pain after failing since course of nonoperative care is here for surgical intervention. Principal Diagnosis Lumbar spinal stenosis with spondylolisthesis and neurogenic claudication Discharge Data Allergies Allergy/AdvReac Type Severity Reaction Status Date / Time No Known Drug Allergies Allergy Verified 04/20/24 10:11 Consultations 04/20/24 17:15 Consult Hospitalist Routine Procedures Performed Operation Date: 04/20/24 11:25 Actual Procedures p L4-S1 Decompression and Fusion with Spinal Cord Monitoring(Not Applicable) - Rashaun Willoughby DO Ordered Studies 04/20/24 11:25 FL lumbar spine 2-3V Routine Hospital Course (1) Neurogenic claudication due to lumbar spinal stenosis: Patient went lumbar decompression fusion tolerates well was taken to orthopedic for postoperative. Post ablation progressed appropriately. Leg pain improved. Excellent strength testing. NURIA drain decreasing. Subsidy discharged home. Discharge orders instructions from the chart for further review. Total Time Total Time Spent Total Time Spent (In Minutes): 20 minutes Discharge Plan Discharge Items Patient Disposition: Home - Self-Care Reason For Visit: Spinal Stenosis of Lumbar Region with Neurogenic C Discharge Diagnosis: Lumbar spinal stenosis with neurogenic claudication spondylolisthesis L4-5 Activity: As commented below Non-emergency contact: Primary Care Provider Call non-emergency contact if: you have any medication questions Follow-up/Referrals: Sandy Leigh CRNP [Primary Care Provider] - Diet: Regular Addtl Attending Provider Instructions: ACTIVITY RECOMMENDATIONS: SELF CARE INSTRUCTIONS AFTER THORACIC/LUMBAR FUSIONS 1. You may walk to your tolerance. It is good exercise for your legs and back. Expect some back and intermittent leg aches and pains. 2. You may perform "counter-top" level activities (make a sandwich, jim with a project, etc.). 3. No bending or lifting of more than 10 pounds or back twisting of any nature (roll like a log when turning in bed). 4. You may ride in a car for 20-30 minutes at a time. No driving until after your first visit with your doctor. 5. Frequent changes of position and restricting sitting to 30 minutes at a time will help limit the amount of back spasms and stiffness you may experience. 6. You may discontinue the use of ambulatory aids (cane, crutches, etc.) once your strength and confidence allow. 7. You may bowling or skating front desk clerk the shower and let water strike your incision when you arrive home at least once daily. Do not take a tub bath, sit in a hot tub or go into a swimming pool until after your first recheck in the office. SPECIAL CARE INSTRUCTIONS: VERY IMPORTANT TO READ AND REVIEW A. Your surgical incision has been closed with a cosmetic suture under the skin that will dissolve in about 6 weeks. In 14 days, you can use a pair of clean scissors and cut the suture that is left outside of the skin at the ends of your incision. 1. The small skin tapes can be removed 7 days after surgery if they have not fallen off by that point. 2. You may keep the wound open to air as much as possible to promote healing after post-op day number 5 unless told otherwise by your doctor. 3. If you think the wound looks like it is becoming infected (redness or worsening drainage) and/or you are experiencing fever, chill or worsening back pain and muscle spasms, contact the office so that we may evaluate you as soon as possible. B. Complications are uncommon, but please contact us if you have any signs or symptoms of: 1. wound infection (fever higher than 102.5 degrees F, redness, separation of wound, drainage, or increasing pain from the incision) 2. blood clots in legs (pain, swelling, redness and warmth in legs) 3. urinary tract infection (fever higher than 102.5 degrees F, burning upon urination or increased frequency of urination) 4. nerve problems (inability to walk on your toes or heels, numbness, loss of bowel or bladder control) 5. any other symptoms that concern you C. Please call the office at if you have any concerns or questions about your operation or recovery. D. No smoking! Smoking drastically decreases the chance of a solid fusion. E. Do not take any anti-inflammatory medications (Indocin, Advil, Motrin, Aspirin, Naprosyn, etc.) as these may inhibit the chance of a solid fusion. Tylenol is okay to take for pain. MANAGING PAIN AFTER SPINAL SURGERY 1. Narcotic medication is intended for short-term use and will be provided for surgical pain. Surgical pain usually lasts for a period of 4-6 weeks. Narcotic medication includes Percocet, Vicodin, Darvocet, Tylenol #3 or Lortab. 2. Longer-term pain is more appropriately treated with non-narcotic medication such as Tylenol ES. 3. Muscle spasm is not appropriately treated with narcotics. Muscle relaxers such as Soma, Flexeril or Skelaxin can be used along with Tylenol ES. 4. Remember that we all live with some "aches and pains". This is not unusual or uncommon after an injury or as we get older. a. Back pain is expected and may include muscle spasms for 4 to 6 weeks after surgery. The pain should gradually improve. If the pain worsens for no apparent reason, please contact the office. b. Intermittent leg pain may also be experienced and should not be concerned about unless it worsens for no apparent reason. If so, please contact the office. 5. We will provide appropriate medication within the normal guidelines of their prescribed use. We will also be very cautious and aware of potential abuse and extended duration of patients' medication needs. a. Pain medications are for your comfort and to assist with sleep and rest so that the tissue can heal. They are not provided in order to return to normal activity and should not be used through the day. To do so or worsening pain at night can result from ongoing tissue damage and development of tolerance to the prescribed medicine. 6. Please allow 2-3 days to process refills. Prescriptions will not be mailed but must be picked up at the office. FOLLOW UP VISIT: Keep your scheduled follow-up appointment. Any questions, please call the office at . Pending Studies at Discharge: No Stand-Alone Forms: [facility] [place], Smoking Cessation Medications and DC Order Prescriptions: New tramadol 50 mg tablet 50 mg PO Q6H PRN (Reason: pain, moderate) Qty: 30 0RF oxycodone 5 mg tablet 5 mg PO Q6H PRN (Reason: pain) Qty: 30 0RF Continued baclofen 10 mg tablet 10 mg PO BID PRN (Reason: pain/spasm) Qty: 60 0RF BC Arthritis 1,000-65 mg powder in packet 1 ea PO DAILY PRN (Reason: Pain) aspirin 81 mg capsule 81 mg PO QPM levothyroxine 150 mcg tablet 150 mcg PO DAILY Qty: 90 1RF nitrofurantoin monohyd/m-cryst [Macrobid] 100 mg capsule 100 mg PO Q12H 5 Days Qty: 10 0RF Patient Comments: finished saturday Rx Instructions: must administer with a meal/food venlafaxine [Effexor XR] 75 mg capsule,extended release 24hr 75 mg PO QAM metformin 500 mg tablet 1,000 mg PO BID cranberry 500 mg capsule 1,500 mg PO BID Rx Instructions: administer with meals nabumetone 500 mg tablet 500 mg PO BID PRN (Reason: Pain) ascorbic acid (vitamin C) 1,000 mg capsule 1,000 mg PO QPM cholecalciferol (vitamin D3) 125 mcg (5,000 unit) capsule 125 mcg PO DAILY echinacea 400 mg capsule 400 mg PO DAILY zinc gluconate 100 mg tablet 100 mg PO QPM biotin 5,000 mcg PO QPM calcium carbonate [Calcium 600] 600 mg calcium (1,500 mg) tablet 600 mg PO QPM hydroxychloroquine 200 mg tablet 400 mg PO QPM valsartan 320 mg tablet 160 mg PO QPM selenium 200 mcg Tablet 200 mcg PO QPM magnesium, potassium aspartate [Potassium, Magnesium Aspartat] 250-250 mg Capsule 1 cap PO QPM d-mannose 500 mg Capsule 500 mg PO QPM gabapentin 100 mg Tablet 100 mg PO TID Discharge Orders: Discharge Order (Routine); Ordered 04/23/24 Ordered By: Rashaun Willoughby Admission Data Admit Date/Time: 04/20/24 14:48 Attending Provider: Rashaun Willoughby Admit Provider: Rashaun Willoughby Primary Care Provider: Sandy Leigh Other Providers: Ye Deshpande
[2024-04-23 13:43] LABS: Appearance Urine Clear (Clear); Bacteria Urine Automated None Seen (None Seen); Bilirubin Urine Negative (Negative); Blood Urine Trace (Negative); Cast Urine Automated 0-2 /lpf (0-2); Color Urine Yellow; Epithelial Cell Urine Auto 0-2 /hpf (0-2); Glucose Urine UA Negative (Negative); Ketones Urine Negative (Negative); Leukocyte Esterase Urine 3+ (Negative); Nitrite Urine Negative (Negative); Protein Urine Negative (Negative); RBC Urine Automated 0-2 /hpf (0-2); Specific Gravity Urine 1.014 (1.000-1.030); Urobilinogen Urine Negative (Negative); WBC Urine Automated 21-50 /hpf (0-5); pH Urine 7.5 (4.5-7.5)
--- NOTE | 2024-04-23 14:36 | Hospitalist Progress Note ---
Date of Service April 23, 2024 Assessment & Plan (1) UTI (urinary tract infection): Plan: symptoms of such u/a mildly suggestive of UTI start keflex 500mg BID send home with prescription for keflex follow cx (2) Neurogenic claudication due to lumbar spinal stenosis: Plan: POD #3 s/p lumbar decompression/fusion L4-S1 by Dr Willoughby Defer pain management and disposition to primary ortho-spine team (3) Acute blood loss anemia: Plan: ~3 gram drop from her surgery start ferrous sulfate 325mg daily (4) Morbid obesity: Plan: BMI 56 (5) History of iron deficiency: Plan: noted see above would benefit from taking iron (ferrous sulfate) 325mg daily (6) Hypothyroidism: Plan: TSH 08/2023 wnl Cont synthroid (7) HTN (hypertension): Plan: Due to acute blood loss anemia her BPs had been running low-normal valsartan had been on hold now resuming valsartan Trend her BPs BMP stable (8) H/O Sjogren's disease: Plan: noted follows with [facility] cont plaquenil (9) TYRONE positive: Plan: follows with [facility] dx - SLE? MCTD? Other? cont plaquenil (10) History of left breast cancer: Plan: noted (11) Sleep apnea: Plan: cont CPAP Plan stable from medical standpoint while awaiting urine cx final result can send home with PO keflex antibiotic Admission and Anticipated Discharge Date Admission Date: April 20, 2024 Subjective c/o dysuria started last evening and has continued into today having urinary frequency and feeling like she is not emptying her bladder PVR, however, <10cc no fevers eating well back pain controlled Review of Systems Review of Systems: gen - no fevers or chills cv - no cp, no orthopnea pulm - no dyspnea or [employer] Physical Exam Physical Exam: gen - morbidly obese, NAD mouth - MMM neck - no JVD heart - RRR, s1 s2, no murmur lungs - CTA b/l abd - soft NT ND BS+ ext - no edema, pulses 2+ b/l Results & Data Results & Data Vital Signs (Past 12 Hours) Vital Signs Temp Pulse Pulse Resp BP Pulse Ox O2 Del Method 04/23/24 13:54 36.7 C 75 83 16 100/55 L 98 04/23/24 07:13 36.7 C 83 16 100/55 L 98 Room Air Laboratory Results Laboratory Results 04/23/24 13:00 Urine Color Yellow Urine Appearance Clear Urine pH 7.5 Ur Specific [place] 1.014 Urine Protein Negative Urine Glucose (UA) Negative Urine Ketones Negative Urine Blood Trace H Urine Nitrite Negative Urine Bilirubin Negative Urine Urobilinogen Negative Ur Leukocyte Esterase 3+ H Urine WBC (Auto) 21-50 H Urine RBC (Auto) 0-2 U Hyaline Cast (Auto) 0-2 U Epithel Cells (Auto) 0-2 Urine Bacteria (Auto) None Seen PG Care Time/CCT Total # of Minutes Spent Total Time Spent with Patient: Total time spent is greater than 50% in coordination of care (as documented) at patient's floor/unit and/or counseling patient: Coding Level of Care Code 56643 SUB INP/OBS CARE 11/14MIN Diagnoses UTI (urinary tract infection) N39.0 Neurogenic claudication due to lumbar spinal stenosis M48.062 Acute blood loss anemia D62 Morbid obesity E66.01 History of iron deficiency Z86.39 Hypothyroidism E03.9 HTN (hypertension) I10 H/O Sjogren's disease M35.00 TYRONE positive R76.8 History of left breast cancer Z85.3 Sleep apnea G47.30
[2024-04-23] MEDS: cephALEXin 500 MG CAP PO STA (14:41)
== END 2024-04-23 15:00 | disposition home or self-care (01) | DRG 454 ==
LOC: ASU 09:32 → 3W 14:48
DX: M48.062 Spinal stenosis, lumbar region with neurogenic claudication; M35.00 Sjogren syndrome, unspecified; M43.16 Spondylolisthesis, lumbar region; D62 Acute posthemorrhagic anemia; G47.33 Obstructive sleep apnea (adult) (pediatric); R76.0 Raised antibody titer; Z79.82 Long term (current) use of aspirin; Z79.890 Hormone replacement therapy; Z79.899 Other long term (current) drug therapy; Z79.84 Long term (current) use of oral hypoglycemic drugs; I10 Essential (primary) hypertension; Z68.43 Body mass index [BMI] 50.0-59.9, adult; Z85.3 Personal history of malignant neoplasm of breast; E66.01 Morbid (severe) obesity due to excess calories; Z86.39 Personal history of other endocrine, nutritional and metabolic disease; E03.9 Hypothyroidism, unspecified